=== PATIENT | male | born 2000 | race Caucasian/White ===

== ENCOUNTER 2024-03-07 17:45 | Emergency (ER) | payer BC ==
[2024-03-07 19:08] LABS: #Basophils 0.05 10x3/uL (0.0-0.2); %Basophils 0.6 % (0.0-1.0); %Eosinophils 1.4 % (0.0-10.0); %Lymphocytes 19.7 % (21.0-51.0); %Monocytes 8.6 % (0.0-10.0); %Neutrophils 69.5 % (42.0-75.0); Hematocrit 41.4 % (42.0-52.0); Hemoglobin 14.8 g/dL (14.0-18.0); Mean Corpuscular HGB CONC 35.7 g/dL (32.0-36.0); Mean Corpuscular Hemoglobin 31.9 pg (27.0-31.0); Mean Corpuscular Volume 89.2 fL (78.0-98.0); Mean Platelet Volume 9.6 fL (7.4-10.4); Platelet Count 233 10x3/uL (130-400); RBC Distribution Width 11.8 % (11.5-14.5); Red Blood Cell (RBC) Count 4.64 mill/uL (4.70-6.10)
[2024-03-07 19:32] LABS: ALT (SGPT) 23 U/L (8-55); AST (SGOT) 21 U/L (5-34); Albumin 4.8 g/dL (3.5-5.0); Alkaline Phosphatase 69 U/L (40-110); BUN (Urea Nitrogen) 11 mg/dL (8.9-20.6); Bilirubin, Total 0.8 mg/dL (0.2-1.2); Calc. Creatinine Clearance 0 mL/min (70-130); Calcium 10.1 mg/dL (7.8-10.44); Carbon Dioxide 25 mmol/L (22-29); Estimated GFR 125; Globulin 3.1 g/dL (2.4-3.5); Glucose 85 mg/dL (70-105); Lipase 10 U/L (8-78); Protein, Total 7.9 g/dL (6.0-8.3)
[2024-03-07] MEDS ORDERED: Ketorolac Tromethamine 30 MG (1 mL) VIAL ONE (20:40)
[2024-03-07 20:52] LABS: Chloride 101 mmol/L (98-107); Potassium 3.9 mmol/L (3.5-5.1); Sodium 138 mmol/L (136-145)
[2024-03-07 21:08] LABS: Bacteria/HPF None Seen HPF (None Seen); Bilirubin Negative (Negative); Blood, Urine Negative (Negative); CAUTI Indications for Culture Pelvic or flank pain; Clarity Clear (Clear); Glucose, Urine (Dipstick) Normal (Negative); Ketone, Urine Negative (Negative); Leukocyte Negative Leu/uL (Negative); Nitrite Negative (Negative); Protein, Urine (Dipstick) Negative (Neg-Trace); RBC/HPF 0-3 HPF (0-3); Squamous Epithelial 0-3 HPF (0-3); Urobilinogen Normal mg/dL (Less than 2); WBC/HPF 0-3 HPF (0-3); pH, Urine 6.5 (5.0-9.0)
[2024-03-07 21:20] LABS: Specific Gravity, Urine 1.061 (1.002-1.036)
[2024-03-07 21:21] LABS: Anion Gap 16 mmol/L (10-20)
[2024-03-07 21:21] LABS: Urine Culture Reflex No No
== END 2024-03-07 21:28 | disposition home or self-care (01) ==
LOC: ERS 17:45
DX: R10.31 Right lower quadrant pain (principal)
CPT/HCPCS: 74177; 80053; 81001; 83690; 85025; 96374; J1885